=== PATIENT | female | born 1945 | race African-American/Black ===

== ENCOUNTER 2017-09-24 11:21 | Emergency (ER) | payer MEDICARE, MEDICAID ==
[~2017-09-24] VITALS: Ht 170.2 cm; Wt 67.0 kg
[~2017-09-24 11:21] MED LIST: AMLO10TA4 PO; ASPI-986 PO; CLOP75TA16 PO; DIAZ10TA PO; GABA300C PO; LEVO100T PO; OMEP20CA10 PO; PHEN100C4 PO; PRED10TA PO; SIMV20TA6 PO
[2017-09-24 12:26] LABS: BASOPHILS % 0.8 % (0.0-2.0); EOSINOPHILS % 2.6 % (0.0-5.0); HEMATOCRIT. 33.7 % (36.0-48.0); HEMOGLOBIN. 11.5 g/dL (12.0-16.0); LYMPHOCYTES % 28.8 % (20.0-50.0); MEAN CORPUSCULAR HEMOGLOBIN 35.1 pg (28.0-32.0); MEAN CORPUSCULAR VOLUME 102.5 fL (81.0-99.0); MEAN PLATELET VOLUME 7.9 fl (7.4-10.4); MONOCYTES % 9.8 % (2.0-8.0); PLATELET 247 x1000/uL (130-400); RED BLOOD CELL COUNT 3.29 mill/uL (4.2-5.4); RED CELL DISTRIBUTION WIDTH 15.6 % (11.6-14.6)
[2017-09-24 12:33] LABS: INR 1.1; PROTHROMBIN TIME 11.7 sec (9.4-11.6)
[2017-09-24 12:49] LABS: CARBON DIOXIDE 24 mEq/L (21-32); CHLORIDE 107 mEq/L (98-107)
[2017-09-24 13:01] LABS: TROPONIN I < 0.02 ng/mL (0.00-0.04)
[2017-09-24] MEDS ORDERED: TRAMADOL 50MG TABLET PO ONE (13:30)
[2017-09-24 15:01] VITALS: BP 146/83
== END 2017-09-24 15:06 | disposition home or self-care (01) ==
LOC: ER 11:39
DX: M79.1 Myalgia (principal); R20.0 Anesthesia of skin; R53.1 Weakness; R06.02 Shortness of breath; I10 Essential (primary) hypertension; Z86.73 Personal history of transient ischemic attack (TIA), and cerebral infarction without residual deficits; Z46.82 Encounter for fitting and adjustment of non-vascular catheter; Z93.0 Tracheostomy status; Z79.82 Long term (current) use of aspirin; Z88.5 Allergy status to narcotic agent
CPT/HCPCS: 36415; 70450; 71010; 80053; 83880; 84484; 85025; 85610; 93005; 99285